=== PATIENT | male | born 1955 | race Caucasian/White ===

== ENCOUNTER → 2016-10-31 | Outpatient (CLI) | payer OTHER ==
--- NOTE | ~2016-10-31 | TH ---
Unit #: [id number] #: [id number] Patient: JHONY JACKSON [id number] [address] [place], [place] [address] [id number] O MR#: [id number] NAME: JHONY JACKSON : 1955 SEX: M STUDY DATE/TIME: 10/31/2016 UNIT: [facility] ROOM: STUDY DESCRIPTION: Attending Physician: Brittney Reed M.D. Referring Physician: Brittney Reed M.D. Primary Care Physician: Donn Jarrett M.D. CARDIOLOGY REPORT EXAM Stress nuclear and ECG combined. SUMMARY Patient received Lexiscan intravenously while at rest, as well as technetium 99 Cardiolite 11.15 and 31.7 mCi at rest and stress, respectively. Appropriate views were obtained. FINDINGS The resting ECG showed no diagnostic ST shifts. With stress, there were no diagnostic ST shifts, no dysrhythmias, and no heart block. Heart rate increased from 70 to 94, blood pressure decreased from 134/90 to 122/76. Patient experienced shortness of breath and chest tightness. There is diaphragmatic attenuation artifact both at rest and stress. Otherwise, normal perfusion at both and stress. End-diastolic volume is 114 mL. Gated perfusion wall motion analysis demonstrates mild hypokinesis of the inferior wall with ejection fraction of 51% quantitatively. Summed stress score is 5, summed difference score is 3. Changes primarily involve border detection at the anterolateral base. Planar images demonstrate no significant patient motion at rest or stress. There is no significant lung uptake, LV or RV enlargement. There is mild LV enlargement as noted above. IMPRESSION 1. Lexiscan stress ECG shows no ischemia. 2. 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 3. Upper normal to mildly enlarged LV size. 4. Low normal LV function. 1. Dictated by... Walter Turpin M.D. JAZMIN/cristiano TD: 11/03/2016 16:06 JOB #: [id number] Unit #: [id number] #: [id number] Patient: JHONY JACKSON CARDIOLOGY REPORT Page 1 of 1 X Walter Turpin MD CARDIOLOGY REPORT
== END | disposition home or self-care (01) ==
LOC: CNUC 08:43
DX: I25.10 Atherosclerotic heart disease of native coronary artery without angina pectoris (principal); I51.7 Cardiomegaly; I36.1 Nonrheumatic tricuspid (valve) insufficiency; Z72.0 Tobacco use
CPT/HCPCS: 78452; 93017; 93306; A9500; J2785